=== PATIENT | female | born 1955 ===

== ENCOUNTER 2020-06-25 05:40 | Day surgery (SDC) | payer OTHER ==
[~2020-06-25 05:40] MED LIST: AMLODIPINE BESY10 MG PO; GLIMEPIRIDE4 M1 PO; LASIX40 MG PO; LEVO-T25 MCG PO; ZESTRIL20 MG PO; ZOCOR20 MG PO
== END 2020-06-25 11:10 | disposition home or self-care (01) ==
LOC: CIR.AMB 05:40
PROVIDERS: ATTEND Urology
DX: C67.0 Malignant neoplasm of trigone of bladder (principal); Z20.822 Contact with and (suspected) exposure to COVID-19

== ENCOUNTER 2022-12-19 05:14 | Day surgery (SDC) | payer OTHER ==
[2022-12-05 08:03] LABS: HEMATOCRIT 37.2 % (36.0-45.00); HEMOGLOBIN 12.5 g/dL (12.0-15.00); MEAN CORPUSCULAR HGB CONC 33.6 g/dl (32.0-36.0); PLATELET COUNT 289 K/uL (150-450); RED BLOOD COUNT 3.91 M/uL (4.00-6.00); RED CELL DISTRIBUTION WIDTH 12.1 % (11.5-14.5)
[2022-12-05 08:20] LABS: URINE APPEARANCE Clear; URINE BILIRRUBIN Negative (NEGATIVE); URINE BLOOD Negative; URINE COLOR Yellow; URINE GLUCOSE Negative (NEGATIVE); URINE LEUKOCYTE Negative; URINE NITRATE Negative; URINE PROTEIN Negative (NEGATIVE); URINE UROBILINOGEN 0.2 E.U./dl
[2022-12-05 08:21] LABS: URINE EPITHELIAL CELLS 1.6 uL (0.0-38.8); URINE WBC 8.4 uL (0.0-23.2)
[2022-12-05 08:22] LABS: INR 0.97; PARTIAL THROMBOPLASTIN TIME 26.4 SECONDS (22.0-34.0); PROTHROMBIN TIME 10.2 SECONDS (9.0-11.5)
[2022-12-05 08:29] LABS: URINE RBC 1.1 uL (0.0-20.8)
[2022-12-05 08:32] LABS: CALCIUM 8.7 mg/dL (8.5-10.1); CREATININE SERUM 1.88 mg/dL (0.55-1.02); GFR 26.53; POTASSIUM 5.06 mEq/L (3.5-5.1)
[~2022-12-19] VITALS: Ht 154.9 cm; Wt 66.7 kg
== END 2022-12-19 16:35 | disposition home or self-care (01) ==
LOC: CIR.AMB 05:14
PROVIDERS: ATTEND Urology
DX: C67.9 Malignant neoplasm of bladder, unspecified (principal); E11.9 Type 2 diabetes mellitus without complications; Z20.822 Contact with and (suspected) exposure to COVID-19; I10 Essential (primary) hypertension; E03.9 Hypothyroidism, unspecified